=== PATIENT | female | born 1985 | race American Indian/Alaskan Native ===

== ENCOUNTER 2021-10-12 12:49 | Emergency (ER) | payer OTHER ==
[2021-10-12 13:41] LABS: Bilirubin,Urine NEG (Negative); Blood,Urine NEG (Negative); Color,Urine Yellow (Yellow); Mucus,Urine FEW /HPF; Protein,Urine <15 mg/dL mg/dL (Negative)
[2021-10-12 14:19] LABS: Hematocrit 30.3 % (30.3-42.9); Hemoglobin 9.9 gm/dl (10.1-14.3); Mean Corpuscular HGB Conc 33 % (30-34); Mean Corpuscular Volume 103 fl (79-97); Platelet Count 406 K/mm3 (140-440); Red Blood Count 2.93 M/mm3 (3.65-5.03)
[2021-10-12 14:42] LABS: BUN/Creatinine Ratio 11; Blood Urea Nitrogen 9 mg/dL (7-17); Calcium 9.3 mg/dL (8.4-10.2); Hemolysis Index 10
[2021-10-12 15:50] LABS: Anisocytosis 2+; Basophils % (Manual) 0 % (0.0-1.8); Large Platelets Few; Platelet Estimate Consistent w Auto; Total Cells Counted 100
[2021-10-12] MEDS ORDERED: ONDANSETRON 4 MG/2 ML INJ IV ONE (16:55)
[2021-10-12] MEDS ORDERED: MORPHINE 4 MG/1 ML INJ IV ONE (16:55)
--- NOTE | 2021-10-12 17:13 | Emergency Department Report ---
ED Abdominal Pain HPI - General Chief Complaint: Abdominal Pain Stated Complaint: LOWER ABD PAIN Source: patient Mode of arrival: Ambulatory Limitations: No Limitations - History of Present Illness Initial Comments: Patient is a A0 36-year-old -Welsh female with past medical history of hypertension and chronic liver disease who presents to the ED with persistent diffuse lower abdominal pain for the last 2 months, worse in the last 3 weeks. Patient states that she has previously been evaluated extensively by her primary care physician and her CODING CLERK physician and given various antibiotics for UTI and bacterial vaginosis. Patient states that she is scheduled for a pelvic ultrasound in 2 weeks but that the pain has been worsening and could not wait for the ultrasound scheduled. Patient denies fever, chills, vomiting, chest pain or shortness of breath, diarrhea, dysuria, urinary frequency and urgency, cough, vaginal bleeding, vaginal discharge, low back pain, headache or dyspareunia. MD Complaint: abdominal pain (Diffuse lower abdominal pain), other (Nausea) -: Gradual, month(s) (2) Location: LLQ, RLQ, suprapubic Radiation: LLQ, RLQ, suprapubic Migration to: no migration Severity: severe Severity scale (0 -10): 10 Quality: cramping, sharp Consistency: constant Improves With: nothing Worsens With: nothing Associated Symptoms: denies other symptoms, nausea, anorexia. denies: vomiting, diarrhea, fever, chills, constipation, dysuria, hematemesis, hematochezia, melena, hematuria, syncope - Related Data LMP Date: 09/16/21 Home Medications Medication Instructions Recorded Confirmed Last Taken Complete Caplet 1 caplet PO DAILY MDD 1 03/11/18 04/08/18 04/07/18 08:00 Previous Rx's Medication Instructions Recorded Last Taken Type Cyclobenzaprine [Flexeril] 10 mg PO QHS PRN #24 tablet 12/24/16 Unknown Rx Diclofenac Potassium 50 mg PO BID #30 tablet 12/24/16 Unknown Rx labetaloL [Labetalol 200mg TAB] 200 mg PO BID #60 tablet 03/13/18 04/07/18 20:00 Rx Ibuprofen [Motrin] 800 mg PO Q8HR PRN #30 tablet 04/11/18 Unknown Rx NIFEdipine XL [Procardia Xl] 60 mg PO QDAY 30 Days #30 tablet 04/11/18 Unknown Rx amLODIPine [Norvasc] 5 mg PO DAILY #30 tab 04/11/18 Unknown Rx labetaloL [Labetalol 200mg TAB] 200 mg PO BID #60 tablet 04/11/18 Unknown Rx labetaloL [Labetalol 200mg TAB] 200 mg PO BID 60 Days tablet 04/11/18 Unknown Rx oxyCODONE /ACETAMINOPHEN [Percocet 1 tab PO Q4HR #14 tab 04/11/18 Unknown Rx 5/325] labetaloL [Labetalol 100mg TAB] 300 mg PO BID #120 tablet 04/12/18 Unknown Rx Docusate Sodium [Colace CAP] 100 mg PO BID #60 capsule 10/12/21 Unknown Rx Ibuprofen [Motrin] 800 mg PO Q8HR PRN #30 tablet 10/12/21 Unknown Rx cephALEXin [Keflex] 500 mg PO Q6HR #40 capsule 10/12/21 Unknown Rx traMADoL [Ultram] 50 mg PO Q6HR PRN #10 tablet 10/12/21 Unknown Rx Allergies Allergy/AdvReac Type Severity Reaction Status Date / Time No Known Allergies Allergy Verified 09/09/18 19:01 ED Review of Systems ROS: Stated complaint: LOWER ABD PAIN Other details as noted in HPI Constitutional: denies: chills, fever Eyes: denies: eye pain, eye discharge, vision change ENT: denies: ear pain, throat pain Respiratory: denies: cough, shortness of breath, wheezing Cardiovascular: denies: chest pain, palpitations Endocrine: no symptoms reported Gastrointestinal: abdominal pain (diffuse lower abdominal pain), nausea. denies: vomiting, diarrhea, constipation, hematemesis, melena Genitourinary: denies: urgency, dysuria, discharge Musculoskeletal: denies: back pain, joint swelling, arthralgia Skin: denies: rash, lesions Neurological: denies: headache, weakness, paresthesias Psychiatric: denies: anxiety, depression Hematological/Lymphatic: denies: easy bleeding, easy bruising ED Past Medical Hx - Past Medical History Previous Medical History?: Yes Hx Hypertension: Yes (cHTN with BERNADETTE.) Hx Heart Attack/AMI: No Hx Congestive Heart Failure: No Hx Diabetes: No Hx Deep Vein Thrombosis: No Hx Liver Disease: Yes (mildly elevated LFTs. Coags pending.) Hx Renal Disease: No Hx Sickle Cell Disease: No Hx Seizures: No Hx Asthma: No Hx COPD: No Hx HIV: No - Social History Smoking Status: Never Smoker Substance Use Type: None - Medications Home Medications: Home Medications Medication Instructions Recorded Confirmed Last Taken Type Cyclobenzaprine [Flexeril] 10 mg PO QHS PRN #24 tablet 12/24/16 Unknown Rx Diclofenac Potassium 50 mg PO BID #30 tablet 12/24/16 Unknown Rx Complete Caplet 1 caplet PO DAILY MDD 1 03/11/18 04/08/18 04/07/18 08:00 History labetaloL [Labetalol 200mg TAB] 200 mg PO BID #60 tablet 03/13/18 04/09/18 04/07/18 20:00 Rx Ibuprofen [Motrin] 800 mg PO Q8HR PRN #30 tablet 04/11/18 Unknown Rx NIFEdipine XL [Procardia Xl] 60 mg PO QDAY 30 Days #30 tablet 04/11/18 Unknown Rx amLODIPine [Norvasc] 5 mg PO DAILY #30 tab 04/11/18 Unknown Rx labetaloL [Labetalol 200mg TAB] 200 mg PO BID #60 tablet 04/11/18 Unknown Rx labetaloL [Labetalol 200mg TAB] 200 mg PO BID 60 Days tablet 04/11/18 Unknown Rx oxyCODONE /ACETAMINOPHEN [Percocet 1 tab PO Q4HR #14 tab 04/11/18 Unknown Rx 5/325] labetaloL [Labetalol 100mg TAB] 300 mg PO BID #120 tablet 04/12/18 Unknown Rx Docusate Sodium [Colace CAP] 100 mg PO BID #60 capsule 10/12/21 Unknown Rx Ibuprofen [Motrin] 800 mg PO Q8HR PRN #30 tablet 10/12/21 Unknown Rx cephALEXin [Keflex] 500 mg PO Q6HR #40 capsule 10/12/21 Unknown Rx traMADoL [Ultram] 50 mg PO Q6HR PRN #10 tablet 10/12/21 Unknown Rx ED Physical Exam - General Limitations: No Limitations General appearance: alert, in no apparent distress - Head Head exam: Present: atraumatic, normocephalic, normal inspection - Eye Eye exam: Present: normal appearance, PERRL, EOMI Pupils: Present: normal accommodation - ENT ENT exam: Present: normal exam, normal orophraynx, mucous membranes moist, TM's normal bilaterally, normal external ear exam - Neck Neck exam: Present: normal inspection, full ROM - Respiratory Respiratory exam: Present: normal lung sounds bilaterally. Absent: respiratory distress, wheezes, rales, rhonchi, chest wall tenderness, accessory muscle use, decreased breath sounds, prolonged expiratory - Cardiovascular Cardiovascular Exam: Present: normal rhythm, tachycardia, normal heart sounds. Absent: systolic murmur, diastolic murmur, rubs, gallop - GI/Abdominal GI/Abdominal exam: Present: soft, distended (moderately distended abdomen), tenderness (palpable diffuse lower abdominal tenderness), guarding, normal bowel sounds. Absent: rebound, hypoactive bowel sounds - Extremities Exam Extremities exam: Present: normal inspection, full ROM, normal capillary refill. Absent: tenderness - Back Exam Back exam: Present: normal inspection, full ROM. Absent: tenderness, CVA tenderness (R), CVA tenderness (L), muscle spasm, paraspinal tenderness, vertebral tenderness, rash noted - Neurological Exam Neurological exam: Present: alert, oriented X3, CN II-XII intact, normal gait, reflexes normal - Psychiatric Psychiatric exam: Present: normal affect, normal mood - Skin Skin exam: Present: warm, dry, intact, normal color. Absent: rash ED Course Vital Signs 10/12/21 10/12/21 12:57 17:16 Temperature 99.2 F Pulse Rate 116 H Respiratory 20 14 Rate Blood Pressure 164/80 [Right] O2 Sat by Pulse 100 Oximetry ED Medical Decision Making - Lab Data Result diagrams: 10/12/21 13:46 10/12/21 13:47 - Radiology Data Radiology results: report reviewed, image reviewed [facility] [address] [place] [address] Cat Scan Report Signed Patient: ROSALINDA COLBY MR#: [id number] : 1985 Acct:[id number] Age/Sex: 36 / F ADM Date: 10/12/21 Loc: ED Attending Dr: Ordering Physician: EVELIN VELASCO Date of Service: 10/12/21 Procedure(s): CT abdomen pelvis w con Accession Number(s): [id number] cc: EVELIN VELASCO CT ABDOMEN AND PELVIS WITH CONTRAST INDICATION / CLINICAL INFORMATION: Lower abdominal pain. TECHNIQUE: Axial CT images were obtained through the abdomen and pelvis after IV contrast. All CT scans at this location are performed using CT dose reduction for ALARA by means of automated exposure control. COMPARISON: None available. FINDINGS: LOWER CHEST: No significant abnormality. LIVER: No significant abnormality. GALLBLADDER: No significant abnormality. PANCREAS: No significant abnormality. SPLEEN: No significant abnormality. ADRENALS: No significant abnormality. RIGHT KIDNEY / URETER: No significant abnormality. LEFT KIDNEY / URETER: No significant abnormality. STOMACH / SMALL BOWEL: No significant abnormality. COLON: No significant abnormality. APPENDIX: No significant abnormality. PERITONEUM: No free fluid, free air or organized collection. LYMPH NODES: No significant adenopathy. AORTA / ARTERIES/ VEINS: No significant abnormality. URINARY BLADDER: No significant abnormality. REPRODUCTIVE ORGANS: Small involuting centimeter right ovarian cyst. ADDITIONAL FINDINGS: None. SKELETAL SYSTEM: No significant abnormality. IMPRESSION: 1. No acute abnormality. Signer Name: Gigi Parnell MD Signed: 10/12/2021 6:02 PM Workstation Name: [id number] Transcribed By: SB Dictated By: GIGI PARNELL MD Electronically Authenticated By: GIGI PARNELL MD Signed Date/Time: 10/12/211801 DD/ 1800 TD/TT: - Medical Decision Making This is a A0 36-year-old -Welsh female with past medical history of hypertension and chronic liver disease who presents to the ED with persistent diffuse lower abdominal pain for the last 2 months, worse in the last 3 weeks. Patient states that she has previously been evaluated extensively by her primary care physician and her CODING CLERK physician and given various antibiotics for UTI and bacterial vaginosis. Patient states that she is scheduled for a pelvic ultrasound in 2 weeks but that the pain has been worsening and could not wait for the ultrasound scheduled. In the ED, patient is alert and oriented x3 and is not in any distress. Patient was treated for pain in the ED and also given antiemetics. Lab test results were reviewed and are all nonactionable except for urinalysis that showed significant urinary tract infection. Patient was treated with Rocephin 1 g IV x1 in the ED. the abdomen pelvis CT scan with IV contrast showed no acute abnormalities. On reevaluation, patient's pain is well controlled medication. Patient was discharged home on pain medication and antibiotics and advised to follow-up with her primary care physician in 5 to 7 days for reevaluation or return to the ED immediately if symptoms get worse. - Differential Diagnosis UTI; Appendicitis; Ovarian cyst; ; Uterine fibroids; kidney stones Critical care attestation.: If time is entered above; I have spent that time in minutes in the direct care of this critically ill patient, excluding procedure time. ED Disposition Clinical Impression: Bilateral lower abdominal pain, Nausea and vomiting in adult patient, Acute urinary tract infection Disposition: HOME / SELF CARE / HOMELESS Is pt being admited?: No Does the pt Need Aspirin: No Condition: Stable Instructions: Abdominal Pain (ED), Abdominal Pain, Adult, [id number], Nausea and Vomiting, Adult, [id number], Urinary Tract Infection, Adult, [id number] Additional Instructions: All lab test results were reviewed and are all nonactionable except for urinalysis that showed urinary tract infection. The abdomen pelvis CT scan with IV contrast showed no acute abnormalities. Therefore take medication with food, drink plenty of fluids, follow-up with your primary care physician in 7 to 10 days for reevaluation or return to the ED immediately if symptoms get worse. Prescriptions: Docusate Sodium [Colace CAP] 100 mg PO BID #60 capsule cephALEXin [Keflex] 500 mg PO Q6HR #40 capsule Ibuprofen [Motrin] 800 mg PO Q8HR PRN #30 tablet PRN Reason: Pain , Severe (7-10) traMADoL [Ultram] 50 mg PO Q6HR PRN #10 tablet PRN Reason: Pain Referrals: [facility] [Provider Group] - 3-5 Days Forms: Work/School Release Form(ED) Time of Disposition: 18:55 Print Language: AZERBAIJANI
--- NOTE | 2021-10-12 18:06 | Cat Scan Report ---
CT ABDOMEN AND PELVIS WITH CONTRAST INDICATION / CLINICAL INFORMATION: Lower abdominal pain. TECHNIQUE: Axial CT images were obtained through the abdomen and pelvis after IV contrast. All CT sc ans at this location are performed using CT dose reduction for ALARA by means of automated exposure c ontrol. COMPARISON: None available. FINDINGS: LOWER CHEST: No significant abnormality. LIVER: No significant abnormality. GALLBLADDER: No significant abnormality. PANCREAS: No significant abnormality. SPLEEN: No significant abnormality. ADRENALS: No significant abnormality. RIGHT KIDNEY / URETER: No significant abnormality. LEFT KIDNEY / URETER: No significant abnormality. STOMACH / SMALL BOWEL: No significant abnormality. COLON: No significant abnormality. APPENDIX: No significant abnormality. PERITONEUM: No free fluid, free air or organized collection. LYMPH NODES: No significant adenopathy. AORTA / ARTERIES/ VEINS: No significant abnormality. URINARY BLADDER: No significant abnormality. REPRODUCTIVE ORGANS: Small involuting centimeter right ovarian cyst. ADDITIONAL FINDINGS: None. SKELETAL SYSTEM: No significant abnormality. IMPRESSION: 1. No acute abnormality. Signer Name: Gigi Chin MD Signed: 10/12/2021 6:02 PM Workstation Name: [id number]
[2021-10-12 18:23] LABS: Alanine Aminotransferase 30 units/L (7-56); Albumin 4.7 g/dL (3.9-5)
[2021-10-12 18:33] LABS: Bilirubin,Direct < 0.2 mg/dL (0-0.2)
[2021-10-12 19:28] VITALS: BP 146/76
== END 2021-10-12 19:28 | disposition home or self-care (01) ==
LOC: ED 12:49
DX: N39.0 Urinary tract infection, site not specified (principal); R10.32 Left lower quadrant pain; R10.31 Right lower quadrant pain; R11.2 Nausea with vomiting, unspecified; I10 Essential (primary) hypertension; K76.9 Liver disease, unspecified; Z79.899 Other long term (current) drug therapy
CPT/HCPCS: 36415; 74177; 80048; 80076; 81001; 84702; 85007; 85025; 87086; 96374; 96375; 99284; J2270; J2405; Q9967